=== PATIENT | female | born 1990 | race Caucasian/White ===

== ENCOUNTER 2017-06-23 16:05 | Outpatient (CLI) | payer BC, OTHER ==
--- NOTE | 2017-06-23 19:56 | ULT ---
OB ULTRASOUND: History: Second trimester complete OB ultrasound. Date: 06-23-17 Technique: Multiple longitudinal and transverse images of an intrauterine was obtained usi ng a multihertz curvilinear transducer. FINDINGS: Real-time, color flow, and M-mode sonography demonstrates a viable intrauterine with a fet us in transverse presentation. The placenta is toward the maternal right. Biometrics: BPD 36 mm 17 weeks 1 day HC 142 mm 17 weeks 3 days AC 118 mm 17 weeks 3 days FL 24 mm 17 weeks 3 days Composite age is 17 weeks 2 days with an estimated date of delivery of 11-29-17. Estimated feta l weight is 195 grams, +/- 29 grams. Cervical length measures 33.3 cm. anatomic survey demonstrates intracranial structures, lips, nose, posterior fossa, stomach, dorie th kidneys, four chamber heart, three vessel cord, as well as the spine to be unremarkable. IMPRESSION: Viable IUP with estimated gestational age of 17 weeks 2 days with an estimated date of delivery of . POS: [facility]
== END 2017-06-23 16:06 | disposition home or self-care (01) ==
LOC: ULT 16:05
PROVIDERS: ATTEND Family Medicine
DX: Z34.92 Encounter for supervision of normal pregnancy, unspecified, second trimester (principal); Z3A.17 17 weeks gestation of pregnancy
CPT/HCPCS: 76805

== ENCOUNTER 2017-06-25 20:39 | Inpatient (IN) | payer BC, OTHER ==
[2017-06-25] MEDS ORDERED: Morphine 2 MG/ML SYRINGE ONE (20:47)
[2017-06-25] MEDS ORDERED: Ondansetron HCl/PF 4 MG/2 ML Vial ONE (22:22)
[2017-06-25] MEDS ORDERED: Ondansetron ODT 4 MG TAB SL PRN (23:23)
[2017-06-25] MEDS ORDERED: Ondansetron HCl/PF 4 MG/2 ML Vial IVP PRN (23:23)
[2017-06-25] MEDS ORDERED: Lactated Ringer's 1,000 ML IV SCH (23:30)
[2017-06-25 23:42] VITALS: BMI 28.4
[2017-06-26] MEDS: Morphine 2 MG/ML SYRINGE SLOW IVP PRN ×2 (01:03→06:22)
[2017-06-26] MEDS ORDERED: diphenhydrAMINE 25 MG CAP PO SCH (03:30)
[2017-06-26] MEDS ORDERED: diphenhydrAMINE 25 MG CAP PO PRN (07:59)
[2017-06-26] MEDS: Sodium Chloride 0.9% 1,000 ML IV SCH ×2 (08:13→16:57)
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
[2017-06-26] MEDS: Prenatal Vitamin 1 TAB PO SCH (08:54)
[2017-06-26] MEDS ORDERED: cefTRIAXone\\ROCEPHIN 1 GM, Admixture Fee 1 EACH in Sodium Chloride 0.9% 100 ML IVPB SCH ×2 (09:00→19:30)
[2017-06-26] MEDS: HYDROcodone/Acetaminophen 5/325 mg Tablet PO PRN ×3 (13:28→21:08)
[2017-06-26] MEDS ORDERED: Promethazine HCl 25 MG/ML VIAL IM SCH (14:00)
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
[2017-06-27] MEDS: Sodium Chloride 0.9% 1,000 ML IV SCH ×3 (02:01→12:15)
[2017-06-27] MEDS ORDERED: Levothyroxine Sodium 125 MCG TAB PO SCH (06:00)
[2017-06-27] MEDS: HYDROcodone/Acetaminophen 5/325 mg Tablet PO PRN ×2 (06:27→12:01)
[2017-06-27] MEDS: Prenatal Vitamin 1 TAB PO SCH (12:01)
[2017-06-27 12:14] VITALS: BP 110/59; TEMP 98.1
--- NOTE | 2017-06-27 14:01 | DIS ---
DISCHARGE DIAGNOSES: 1. Urolithiasis with partial left ureteral obstruction and intractable pain. 2. Eighteen week estimated gestational age . HOSPITAL COURSE: The patient is a 26-year-old white female patient at 18 weeks, EGA -0-0-3 wit h a history of kidney stones who is well known to me who was admitted after transfer from the [facility] Room with intractable pain and urolithiasis. Ultrasound at the [place] [facility] revealed moderate right hydronephrosis and renal lithiasis, but no complete obstruction. She h ad been afebrile in the emergency room, she had been in pain at home for 3 days. Her white count wa s 7, hemoglobin 12. CMP was normal. Urinalysis with 31-50 RBCs, 3-5 WBCs. She was subsequently ad mitted to the hospital inpatient service at [facility]. A consult was obtained with Dr. Kari Lo, urologist. The patient was seen and given options for surgical versus medical manageme nt. The patient is opting for medical management. She remained afebrile throughout her stay. Note d a urine culture was never obtained in either emergency room. She had been given IV morphine and R ocephin as well as p.o. hydrocodone as needed. Her pain was under control. She was discharged home in good condition with mild to moderate pain. DISCHARGE MEDICATIONS: Loma 5/32 q.6h. p.r.n. pain, #30 sent to the pharmacy as well as Flomax 0.4 p.o. daily at the recommendation of Dr. Bone. The patient is to see me in the office on for a regular scheduled appointment. Instructions given if she continues with intractable pain, needing pain medication around the clock over the next 3-4 days, she should call Dr. Bone's offi ce for an appointment for possible surgical intervention.
== END 2017-06-27 12:36 | disposition home or self-care (01) | DRG 781 ==
LOC: ERS 20:39 → 3SE 23:10
PROVIDERS: ADMIT Family Medicine; ATTEND Family Medicine
DX: O99.89 Other specified diseases and conditions complicating pregnancy, childbirth and the puerperium (principal); G40.909 Epilepsy, unspecified, not intractable, without status epilepticus; N13.2 Hydronephrosis with renal and ureteral calculous obstruction; O99.282 Endocrine, nutritional and metabolic diseases complicating pregnancy, second trimester; E03.9 Hypothyroidism, unspecified; Z3A.18 18 weeks gestation of pregnancy; G43.909 Migraine, unspecified, not intractable, without status migrainosus; F90.9 Attention-deficit hyperactivity disorder, unspecified type; O99.342 Other mental disorders complicating pregnancy, second trimester; O99.352 Diseases of the nervous system complicating pregnancy, second trimester; Z87.442 Personal history of urinary calculi
CPT/HCPCS: 96374; 96375; A4216; J0696; J2270; J2405; J2550; J7050; Q0162

== ENCOUNTER 2017-07-29 09:34 | Outpatient (CLI) | payer BC, OTHER ==
--- NOTE | 2017-07-29 14:22 | ULT ---
BILATERAL RENAL ULTRASOUND: Date: 07/29/17 HISTORY: Renal stones. Hematuria. COMPARISON: None. TECHNIQUE: Sagittal and transverse imaging of the kidneys performed. FINDINGS: Right Kidney: Moderate hydronephrosis. Nonobstructing calcification in the upper pole cortex. There is a calcificat ion in the renal pelvis measuring approximately 0.9 cm. Right kidney measures 11.3 x 5.5 x 5.5 cm. Left Kidney: No hydronephrosis. Left kidney measures 5.3 x 12.6 x 6.7 cm. No masses. Urinary bladder is unremarkable. IMPRESSION: Moderate right-sided hydronephrosis. Nonobstructing calcifications of the right pelvis are noted. POS: [facility]
== END 2017-07-29 09:35 | disposition home or self-care (01) ==
LOC: ULT 09:34
PROVIDERS: ATTEND Urology
DX: N20.0 Calculus of kidney (principal); N13.30 Unspecified hydronephrosis
CPT/HCPCS: 76770

== ENCOUNTER 2017-08-04 18:45 | Inpatient (IN) | payer BC, OTHER ==
[2017-08-04] MEDS ORDERED: Morphine 4 MG/ML Carpuject ONE ×2 (19:22→20:00)
[2017-08-04 19:25] LABS: Bilirubin Negative (Negative); Blood, Urine Negative (Negative); Glucose, Urine (Dipstick) Negative (Negative); Ketone, Urine Negative (Negative); Nitrite Negative (Negative); Protein, Urine (Dipstick) Negative (Neg-Trace); Urobilinogen 0.2 mg/dL (0.2-1.0)
[2017-08-04 19:31] LABS: #Basophils 0.1 thou/uL (0.0-0.2); #Eosinphils 0.1 thou/uL (0.0-0.7); #Lymphocytes 2.2 thou/uL (1.20-3.40); #Monocytes 0.8 thou/uL (0.11-0.59); #Neutrophils 6.6 thou/uL (1.40-6.50); %Basophils 0.5 % (0.0-1.0); %Eosinophils 0.9 % (0.0-10.0); %Lymphocytes 22.8 % (21.0-51.0); %Monocytes 7.9 % (0.0-10.0); Hematocrit 33.4 % (36.0-47.0); Mean Platelet Volume 7.7 fL (7.4-10.4); Red Blood Cell (RBC) Count 3.83 mill/uL (4.20-5.40); White Blood Cell (WBC) Count 9.7 thou/uL (4.8-10.8)
[2017-08-04 19:38] LABS: ALT (SGPT) 12 U/L (8-55); AST (SGOT) 14 U/L (5-34); Alkaline Phosphatase 57 U/L (40-150); Anion Gap 13 mmol/L (10-20); BUN (Urea Nitrogen) 10 mg/dL (7.0-18.7); Bilirubin, Total 0.2 mg/dL (0.2-1.2); Calc. Creatinine Clearance 0 mL/min (70-130); Carbon Dioxide 21 mmol/L (22-29); Chloride 108 mmol/L (98-107); Estimated GFR-MDRD Greater than 90; Globulin 3.1 g/dL (2.4-3.5); Protein, Total 6.5 g/dL (6.0-8.3)
[2017-08-04] MEDS ORDERED: HYDROcodone/Acetaminophen 10/325 mg Tablet ONE (20:58)
[2017-08-04] MEDS ORDERED: HYDROcodone/Acetaminophen 5/325 mg Tablet PO PRN ×2 (22:01)
[2017-08-04] MEDS ORDERED: Metoclopramide HCl 10 MG/2 ML VIAL IVP PRN (22:06)
[2017-08-04] MEDS: MORPHINE 10 MG/ML SYRINGE IV PRN (22:12)
[2017-08-04] MEDS: Dextrose 5 %-0.45 % NaCl 1,000 ML IV SCH (23:14)
[2017-08-04] MEDS: Promethazine HCl 25 MG/ML VIAL IM PRN (23:16)
[2017-08-05 01:53] VITALS: BMI 27.6
[2017-08-05] MEDS: MORPHINE 10 MG/ML SYRINGE IV PRN ×2 (01:53→06:14)
[2017-08-05] MEDS: Promethazine HCl 25 MG/ML VIAL IM PRN ×2 (05:12→21:15)
[2017-08-05] MEDS: Dextrose 5 %-0.45 % NaCl 1,000 ML IV SCH (06:55)
[2017-08-05 08:38] LABS: PTT 29.9 SEC (22.9-36.1); Prothrombin Time 13.4 SEC (12.0-14.7)
[2017-08-05] MEDS ORDERED: MORPHINE 10 MG/ML SYRINGE IV PRN (09:34)
[2017-08-05] MEDS ORDERED: Morphine PF 1 MG/ML SYR IV PRN (09:35)
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
[2017-08-05] MEDS ORDERED: Ondansetron HCl/PF 4 MG/2 ML Vial IVP PRN (10:06)
[2017-08-05] MEDS ORDERED: Fentanyl 100 MCG/2 ML VIAL ONE (11:20)
[2017-08-05] MEDS ORDERED: Midazolam HCl 2 mg/2 ml Vial ONE (11:21)
[2017-08-05 11:37] LABS: Bilirubin Negative (Negative); Blood, Urine Negative (Negative); Glucose, Urine (Dipstick) Negative (Negative); Ketone, Urine Negative (Negative); Nitrite Negative (Negative); Protein, Urine (Dipstick) Negative (Neg-Trace); Urobilinogen 0.2 mg/dL (0.2-1.0)
[2017-08-05 11:38] LABS: Bacteria/HPF None Seen HPF (None Seen); Hyaline Casts/LPF 0-3 HYALINE CAST LPF (0-3 Hyaline); RBC/HPF 0-3 HPF (0-3); Squamous Epithelial None Seen HPF (0-3); WBC/HPF None Seen HPF (0-3)
[2017-08-05] MEDS: HYDROcodone/Acetaminophen 7.5/325 mg Tablet PO PRN ×3 (12:36→21:16)
[2017-08-05] MEDS: Levothyroxine Sodium 125 MCG TAB PO SCH (12:37)
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
--- NOTE | 2017-08-05 13:21 | ULT ---
RIGHT RENAL ULTRASOUND: History: Nephrostomy tube placement. Technique: Multiple longitudinal and transverse images of the right kidney obtained using a multihert z curvilinear transducer. FINDINGS: Real-time images demonstrate placement of a right sided nephrostomy tube in the right dilated collect ing system. IMPRESSION: Successful percutaneous right nephrostomy tube placement. POS: [facility]
--- NOTE | 2017-08-05 16:11 | CT ---
CT GUIDED RIGHT SIDED NEPHROSTOMY TUBE PLACEMENT: History: Hydronephrosis. Technique: Noncontrast enhanced CT was performed through the upper abdomen. FINDINGS: Hydronephrotic right kidney. A right ureteropelvic junction calculus is seen. Diameter measures appro ximately 8.5 mm. The hydronephrotic right kidney was localized. The overlying skin was prepped and draped in the usual sterile manner. A 1% Lidocaine solution was used to anesthetize overlying soft tissues. A small derm atomy was made. A 5 English Yueh needle was placed using CT guidance into the right hydronephrotic kid carie. An 035 Amplax wire was introduced. The tract was dilated using a 8 English dilator. An all-purpos e drainage catheter was placed over the wire into the right collecting system. Position was confirmed using follow up ultrasound to reduce radiation dose to the fetus. IMPRESSION: Successful CT guided right sided nephrostomy tube placement. POS: [facility]
[2017-08-05] MEDS: Lactated Ringer's 1,000 ML IV SCH ×2 (17:03→18:18)
[2017-08-05] MEDS ORDERED: Preparation H Ointment 28 GM TUBE TOP PRN (19:08)
[2017-08-06] MEDS: HYDROcodone/Acetaminophen 7.5/325 mg Tablet PO PRN ×6 (00:32→20:43)
[2017-08-06] MEDS: Levothyroxine Sodium 125 MCG TAB PO SCH ×2 (07:10→07:11)
--- NOTE | 2017-08-06 09:21 | PRG ---
DATE OF SERVICE: 08/06/2017 SUBJECTIVE: The patient states that she has not really improved overnight, although she felt a littl e better after the nephrostomy tube placement. She is now complaining of 10/10 pain again. Her pain is primarily located at the right flank at the site of the nephrostomy tube as well as in the left l ower quadrant, which is relatively new. She is not complaining of any right lower quadrant pain. Nelli cole is using [place] 7.5/325 as well as Stadol continuously. She denies any fevers or chills, nausea or vomiting and is just complaining of fairly significant pain. PHYSICAL EXAMINATION: VITAL SIGNS: Temperature 97.9, pulse 72, respirations 18, blood pressure 97/54, saturation 98% on ro om air. GENERAL: No apparent distress, actually appears relatively comfortable, although she does grimace oc casionally from pain episodes. She is communicative and alert otherwise. CARDIOVASCULAR: Regular rate and rhythm. LUNGS: Chest clear to auscultation. No increased work of breathing. ABDOMEN: Gravid uterus, mild to moderate tenderness to palpation in the left lower quadrant, althoug h there is no rebound or guarding. No peritoneal signs. No rigid abdomen. Right lower quadrant is nontender. She does have fairly significant right CVA tenderness. The nephrostomy tube is in place with clear yellow urine in the bag. GENITOURINARY: Deferred. EXTREMITIES: 1+ edema. No clubbing or cyanosis. LABORATORY EVALUATION: There are no new labs for today. Urine culture currently has no growth at 24 hours. ASSESSMENT AND PLAN: A 26-year-old white female G4, P3, currently a 23 weeks gestation with persiste nt right flank pain and left lower quadrant pain despite placement of nephrostomy tube for hydronephr osis and an 8.5 mm right ureteropelvic junction stone. This is concerning that she has persistent pa in. Generally, decompression of the renal system should alleviate the pain. I would like to repeat an ultrasound to ensure that she has no left-sided hydronephrosis that is worsening or persistent rig ht-sided hydronephrosis as well as a pelvic ultrasound to ensure that her ovaries, uterus and bladder appear normal without any significant pathology. Assuming these were all normal, we can discuss the possibility of ureteroscopic stone extraction on the right side, although I am hesitant about doing this procedure as removal of the stone probably or possibly may not relieve her pain given that the n ephrostomy tube really did not relieve her pain. The primary reason for considering ureteroscopic st one extraction would be allowing for the nephrostomy tube to be removed, which may alleviate the rosalinda ent's pain as it is possible she is having severe pain just from the nephrostomy tube alone. We will continue to follow and monitor and make decisions with her patient navigator, Dr. Brooks, and the patient and her .
--- NOTE | 2017-08-06 10:08 | ULT ---
OB ULTRASOUND: HISTORY: Left lower quadrant pain. FINDINGS: A single live intrauterine gestation was seen with measurements corresponding to an estimated gestati onal age of 23 weeks 2 days and SUZY at 12/01/17. The estimated weight measures 601 gm or 1 pound 5 ounces. measurements are as follows: BPD 5.26 cm, 22 weeks 0 days HC 22.23 cm, 24 weeks 2 days AC 18.98 cm, 23 weeks 5 days FL 4.08 cm, 23 weeks 2 days heart rate measures 121 b.p.m. The PUMA measures 13.1 cm. Cervical length measures 4 cm. A 3-vessel cord, cord insertion, kidneys, bladder, stomach, 4-chamber heart, lateral ventricles , cerebellum, spine, lips/nose, upper and lower extremities are visualized. No definite anomal ies are seen. No sonographic abnormality is seen in the left lower quadrant. IMPRESSION: Single intrauterine of 23 weeks 2 days estimated gestational age and estimated date of deli very at 12/01/17. POS: [facility]
--- NOTE | 2017-08-06 10:11 | ULT ---
BILATERAL RENAL ULTRASOUND COMPLETE: History: 26-year-old female with history of prior nephrostomy. FINDINGS: Right kidney measures 12.0 x 5.5 x 6.2 cm. Left kidney measures 12.0 x 5.7 x 5.9 cm. The bladder is e mpty. There is no renal hydronephrosis or overt perinephric process. Right renal outline is somewhat obscured. IMPRESSION: No renal hydronephrosis or perinephric process. The percutaneous nephrostomy tube that was placed on 08-05-17 was not definitely visualized on this examination. POS: [facility]
[2017-08-06] MEDS ORDERED: cefTRIAXone\\ROCEPHIN 1 GM, Syringe 0.4 ML in Sterile Water 9.6 ML SLOW IVP SCH (18:15)
--- NOTE | 2017-08-06 18:54 | PRG ---
DATE OF SERVICE: 08/06/2017 The patient's ultrasound results have returned and demonstrates no hydronephrosis bilaterally. The n ephrostomy tube could not be visualized on ultrasound, but she has had continued good urine output of nonbloody urine from the right nephrostomy tube. She continues to have fairly severe pain right on the right flank and right on the nephrostomy tube site. Her left lower quadrant pain has subsided so me, but it is still present. I have discussed with the patient that given the ultrasound findings sh owing no obvious problems with adequate decompression of the kidney with persistent pain around the s rafia of the nephrostomy tube, it is likely the nephrostomy tube itself is causing significant pain rat her than subject her to a ureteral stent placement, which would have to be changed out periodically w ith subsequent general anesthetics for the remainder of her . In order to get her nephrosto my tube out, I discussed possible ureteroscopy with attempt to remove any stones on the right, which would allow for removal of the right nephrostomy tube and a ureteral stent, which would have to be pl aced immediately after the surgery. I went over the risks of the surgery of ureteroscopy including r isk for bleeding, urinary tract infection, ureteral stricture, ureteral perforation, renal injury, da mage to the bladder, urethra or ureter and potential risks to the fetus of general anesthesia, induct ion of labor or contractions of labor and radiation exposure to the fetus during the second trimester. I told her that I would try to limit fluoroscopy to only what was absolutely neces kaelyn during the procedure to ensure a safe procedure to minimize radiation exposure to the fetus, wra pping the fetus with a lead apparently newer studies has been shown to increase the radiation exposur e to the baby as the fluoroscopy machine increases power due to the lead being present and radiation scattered to the fetus would increase as opposed to just doing a simple low dose one shot fluoroscopy view. She understands that these risks are present and understands that in this situation that she is in while surgery is not ideal during . The best time to do surgical intervention will be the second trimester as it has the lowest risk of labor or injury. Given this informa tion, her current pain level, lack of other options and attempt to be more conservative, we have chelly romo decided this would probably be the best course of action. There are risks, but they are low and they are acceptable enough to proceed forward. We have discussed this extensively with her and her segundo lamas and they both feel that this is the best course of action as she states she cannot continue th e rest of her in this manner as she is not able to adequately control the pain on p.o. pain medication and has a significant amount of time left before her baby would be at term. Given all of all this information, she has agreed to go forward with a right-sided ureteroscopy with laser lithot ripsy, basket extraction of stone, placement of a 6 x 24 double-J stent and subsequently after 24 theo rs, removal of the right nephrostomy tube. This time will need to be in place for at least 6-7 days to allow for decrease in ureteral edema at which time we would then plan for ureteral stent removal. After that, she should be stone free on the right and able to continue the rest of her une ventfully with no usage of pain medication or other narcotics and no further kidney stones on the rig ht side. Stone prevention can then be done subsequently after she delivers her baby.
[2017-08-06] MEDS: Promethazine HCl 25 MG/ML VIAL IM PRN (23:39)
[2017-08-07] MEDS ORDERED: Sodium Chloride 0.9% 0 ML ONE (02:18)
[2017-08-07] MEDS: Levothyroxine Sodium 125 MCG TAB PO SCH (06:11)
[2017-08-07] MEDS: MORPHINE 10 MG/ML SYRINGE IV PRN ×3 (06:23→15:47)
[2017-08-07] MEDS ORDERED: Sodium Chloride 0.9% 10 ML ONE ×2 (06:31→19:51)
[2017-08-07] MEDS ORDERED: Fentanyl 100 MCG/2 ML VIAL ONE (12:29)
[2017-08-07] MEDS ORDERED: Morphine PF 1 MG/ML SYR ONE (15:39)
[2017-08-07] MEDS ORDERED: Propofol 200 MG/20 ML VIAL ONE (17:20)
[2017-08-07] MEDS ORDERED: PHENYLEPHRINE-NS 100 MCG/ML 10 ML SYRINGE ONE (17:20)
[2017-08-07] MEDS ORDERED: Succinylcholine Chloride 20 MG/ML 10 ml SYRINGE FS ONE (17:20)
[2017-08-07] MEDS ORDERED: Lidocaine 1% PF 5 ML VIAL ONE (17:20)
[2017-08-07] MEDS ORDERED: ePHEDrine/0.9% NaCl/PF SYRINGE 50 mg/10 ml ONE (17:20)
[2017-08-07] MEDS: HYDROcodone/Acetaminophen 7.5/325 mg Tablet PO PRN ×2 (17:37→22:48)
--- NOTE | 2017-08-07 19:40 | OP ---
DATE OF PROCEDURE: 08/07/2017 SERVICE: Urology. SURGEON: Willy Bone M.D. PREOPERATIVE DIAGNOSIS: Right ureteropelvic junction stone. POSTOPERATIVE DIAGNOSIS: Right distal ureteral stone and right ureteropelvic stone. PROCEDURES PERFORMED: Cystoscopy with right ureteroscopy, laser lithotripsy, basket extraction of st one, and placement of a 6 x 26 double-J stent. INDICATIONS FOR PROCEDURE: Sharla is a 26-year-old white female, who is currently 23 weeks , w ho presented with severe right flank pain. She initially attempted medical expulsive therapy for pre sumed stone given her history of nephrolithiasis, but due to intractable pain, [facility] after being to the ER once prior for nephrostomy tube placement. The nephrostomy tube was pl aced. Unfortunately, she is having significant pain from the nephrostomy tube and persistent flank p ain; therefore, we have elected to go forward with ureteroscopy, so that we may remove ultimately all the hardware and instruments from her to allow her to carry up the rest of her without req uiring pain medication. Risks and benefits have extensively been discussed with the patient given he r and she has agreed to proceed forward. DESCRIPTION OF PROCEDURE: After identification of armband and verification of consent, the patient w as brought back to the operating room where she underwent general anesthesia with an LMA. She was th en placed in the dorsal lithotomy position, and prepped and draped in usual sterile fashion. After a ppropriate timeout, lubricated 22-Somali rigid cystoscope was introduced per urethra into the bladder . Attention was turned towards the right ureteral orifice which was in its orthotopic location. Att empts to cannulate the ureter with a 0.035 sensor wire was met with resistance indicating that there was a likely stone in the distal ureter. The cystoscope and wire removed and semi-rigid ureteroscope brought in and intubated into the right ureteral orifice. The stone was seen approximately 2-3 cm p roximal to the ureteral orifice. Using the ureteroscope, we guided a sensor wire past the stone pres umably to the level of the kidney. Fluoroscopy was minimized to the absolute minimum to avoid excess jose radiation exposure to the fetus. The ureteroscope was then withdrawn to secure the wire and then reinserted adjacent to the wire back into the distal ureter. A 200 micron fiber laser was then used to fragment the distal stone into small pieces and a 1.9 Somali 0-tip nitinol basket used to extract the specimen. Once the stone had completely been removed from the distal ureter, the ureteroscope w as then advanced to the mid ureter where the Super Stiff wire was passed through the ureteroscope to the presumed renal pelvis. A 1 shot fluoroscopy was done over the renal pelvis away from the patient 's actual pelvis where the fetus was, which confirmed that both wires were in the renal pelvis adjace nt to the nephrostomy tube which had been previously placed. Ureteroscope was then withdrawn leaving the Super Stiff wire and the sensor wire in place as a safety wire. A 11/13 x 36 cm ureteral access sheath was then advanced over the Super Stiff wire to the level of the proximal ureter. The inner c annula and the Super Stiff wire were then removed leaving the outer sheath and the sensor wire in hyun ce as a safety wire. A flexible digital ureteroscope was then passed through the ureteral access she ath into the proximal ureter and then into the renal pelvis. There was no stone seen at the [facility], whi ch had previously been identified on the percutaneous nephrostomy tube placement. A full pyeloscopy was performed and there was a tiny fragment of a stone within 1 of the calices, which was basket extr acted. The 8.5 mm stone which had been seen on the CT was found floating around in the renal pelvis adjacent to the nephrostomy tube. The 200 micron laser fiber was then used to fragment this into sma ll pieces. Then, a 1.9 Somali 0-tip nitinol basket was used to extract the specimen. A final pyelos copy did not demonstrate any significant stone pieces over 1 mm, the vast majority of the fragments w ere removed and some of the fragments were able to be flushed through the nephrostomy tube which was left open to gravity drainage. Pull back ureteroscopy was then employed and there were no additional stones or abnormalities noted within the ureter. The cystoscope was then backloaded over the sensor wire back into the bladder and a 6 x 26 double-J stent with no string attached was advanced over the sensor wire to the level of the renal pelvis. One shot fluoroscopy was used to confirm that the pro ximal coil was indeed within the renal pelvis and then the wire removed. The bladder was then emptie d and the cystoscope removed. The patient was then awakened and taken to PACU for recovery in stable condition. Of note, heart monitoring was performed before and after the procedure. COMPLICATIONS: None. ESTIMATED BLOOD LOSS: Minimal. RETAINED TUBES AND DRAINS: A 6 x 26 double-J stent on the right and then nephrostomy tube on the rig ht. SPECIMENS: Stone for stone analysis. TOTAL FLUOROSCOPY TIME: One second. DISPOSITION: The patient will go back to the OB service for Dr. Brooks, and we will monitor her for 24 hours. Tomorrow, we will plan removal of her nephrostomy tube and she will probably keep her sten t in for 1 week at which time we will remove her stent and then she should be stone free at that poin t.
[2017-08-07] MEDS: Promethazine HCl 25 MG/ML VIAL IM PRN (23:20)
[2017-08-08] MEDS: HYDROcodone/Acetaminophen 7.5/325 mg Tablet PO PRN ×2 (05:23→13:24)
[2017-08-08] MEDS: Levothyroxine Sodium 125 MCG TAB PO SCH (05:23)
[2017-08-08 05:53] LABS: Hematocrit 30.6 % (36.0-47.0); Mean Platelet Volume 7.8 fL (7.4-10.4); White Blood Cell (WBC) Count 6.3 thou/uL (4.8-10.8)
[2017-08-08 06:16] LABS: Anion Gap 10 mmol/L (10-20); BUN (Urea Nitrogen) 6 mg/dL (7.0-18.7); Calc. Creatinine Clearance 172 mL/min (70-130); Calcium 8.9 mg/dL (7.8-10.44); Carbon Dioxide 26 mmol/L (22-29); Chloride 108 mmol/L (98-107); Estimated GFR-MDRD Greater than 90
--- NOTE | 2017-08-08 08:04 | RAD ---
RETROGRADE IVP: HISTORY: A 26-year-old female with a history of right stent placement. FINDINGS: Single portable fluoroscopic spot image demonstrates percutaneous nephrostomy catheter in place as we ll as the ureteral stent in place on this single portable fluoroscopic spot image. IMPRESSION: Percutaneous nephrostomy catheter and ureteral stent. POS: [facility]
--- NOTE | 2017-08-08 08:43 | PRG ---
DATE OF SERVICE: 08/08/2017 SUBJECTIVE: The patient is complaining of moderate pain of her right flank after the nephrostomy tub e placement. She states the pain is worse since the nephrostomy tube has been placed. OBJECTIVE: VITAL SIGNS: Temperature 97.9, pulse 101, respirations 20, blood pressure 110/56. HEART: Regular rate and rhythm. LUNGS: Clear. ABDOMEN: Soft. heart tones 138. GENERAL: The patient does not appear to be in any distress at this time. LABORATORY: White count 6.3, H&H 10 and 30. Electrolytes normal. Creatinine 0.6, BUN 6, blood suga r 97. ASSESSMENT: 1. Right ureteral nephrolithiasis status post lithotripsy and nephrostomy tube placement. The patie nt complains of increased pain; however, clinically she does not appear to be in significant pain, al though she is lying in bed. She strongly desires to have a nephrostomy tube removed. 2. Twenty-three week intrauterine . PLAN: 1. Pain control. 2. Dr. Bone to evaluate right nephrostomy tube. 3. Continue hydration. 4. We will continue to follow.
[2017-08-08 12:50] VITALS: BP 99/59; TEMP 99.2
[2017-08-08] MEDS ORDERED: cefTRIAXone\\ROCEPHIN 1 GM, Syringe 0.4 ML in Sterile Water 9.6 ML SLOW IVP SCH (13:00)
[2017-08-08] MEDS ORDERED: cefTRIAXone\\ROCEPHIN 1 GM in Sodium Chloride 0.9% 100 ML IVPB SCH (14:16)
--- NOTE | 2017-08-08 15:03 | PRG ---
DATE OF SERVICE: 08/08/2017 SUBJECTIVE: The patient states she is still having quite a bit of pain from her nephrostomy tube. I told her that she could have her nephrostomy tube removed today if she has decided, then she states that her nephrostomy tube is causing worst pain than stent. Therefore, she would like her nephrostom y tube removed. The tube was removed today and she states that she started feeling better afterwards . OBJECTIVE: VITAL SIGNS: Temperature 99.2, pulse 89, respirations 16, blood pressure 99/59, and saturations 100% on room air. GENERAL: No apparent distress, appears slightly uncomfortable, but is otherwise communicative and al ert. CARDIOVASCULAR: Regular rate and rhythm. CHEST: Clear to anteriorly. ABDOMEN: Soft, nontender, nondistended, gravid uterus, mild tenderness to palpation in the right low er quadrant. GENITOURINARY: Deferred. EXTREMITIES: No clubbing or cyanosis, 1+ edema. ASSESSMENT AND PLAN: A 26-year-old white female status post ureteroscopy for right-sided stones with stent placement and removal of her nephrostomy tube today. She is feeling better now and I think fr om my standpoint, she can go home. She already has pain medication if she needs it and we have elect ed against the use of oxybutynin, which is category C in . Should she have any further prob lems or issues, she can contact me. Otherwise, I will see her next week for cystoscopy and stent rem oval on Friday at 08:30. I will sign off on the case today and please reconsult if there are any other issues. She can be discharged when she is deemed fit by her primary team.
== END 2017-08-08 15:15 | disposition home or self-care (01) | DRG 781 ==
LOC: SCSER 18:45 → OBSVTOIN 22:00 → 3SW 22:00
PROVIDERS: ADMIT Family Medicine; ATTEND Family Medicine
PROC: 0TC68ZZ Extirpation of Matter from Right Ureter, Via Natural or Artificial Opening Endoscopic (ICD-10-PCS; principal; 2017-08-07)
PROC: 0T768DZ Dilation of Right Ureter with Intraluminal Device, Via Natural or Artificial Opening Endoscopic (ICD-10-PCS; 2017-08-07)
PROC: 0T9330Z Drainage of Right Kidney Pelvis with Drainage Device, Percutaneous Approach (ICD-10-PCS; 2017-08-07)
DX: O99.89 Other specified diseases and conditions complicating pregnancy, childbirth and the puerperium (principal); N20.2 Calculus of kidney with calculus of ureter; O99.282 Endocrine, nutritional and metabolic diseases complicating pregnancy, second trimester; E03.9 Hypothyroidism, unspecified; Z3A.23 23 weeks gestation of pregnancy; F90.9 Attention-deficit hyperactivity disorder, unspecified type; O99.342 Other mental disorders complicating pregnancy, second trimester; G43.909 Migraine, unspecified, not intractable, without status migrainosus; O99.352 Diseases of the nervous system complicating pregnancy, second trimester; Z87.442 Personal history of urinary calculi
CPT/HCPCS: 36415; 74150; 74420; 76770; 76775; 76856; 77002; 80048; 80053; 81001; 81003; 82365; 85025; 85027; 85610; 85730; 87086; 88300; 96361; 96374; 96376; A4216; C1729; C1758; C1769; J0595; J0696; J2001; J2250; J2270; J2274; J2550; J2704; J3010

== ENCOUNTER 2017-11-14 22:45 | Day surgery (SDC) | payer BC, OTHER ==
[2017-11-14 23:18] VITALS: BMI 30.8
--- NOTE | 2017-11-15 00:44 | SS ---
OB TRIAGE NOTE DATE OF EVALUATION: 11/14/2017 ATTENDING PHYSICIAN: Donya Brooks M.D. EVALUATING PHYSICIAN: Phoenix Anaya M.D. CHIEF COMPLAINT: Contractions. HISTORY OF PRESENT ILLNESS: Ms. Guillory is a 27-year-old white G4, P3-0-0-3 with an estimated date o f confinement of 11/29/2017, who presents tonight complaining of contractions at home. She denies ru ptured membranes or vaginal bleeding. She has been seen by Dr. Brooks and states that she had her me mbranes stripped last week in the office. She denies decreased movement. PAST OBSTETRICAL HISTORY: Remarkable for 3 vaginal deliveries at term. PAST MEDICAL HISTORY: Includes anxiety and hypothyroidism. Apparently, she has had a seizure disord er in the past. CURRENT MEDICATIONS: Zoloft and Synthroid. PAST SURGICAL HISTORY: Unremarkable. SOCIAL HISTORY: She denies drug use. ALLERGIES: No known allergies. REVIEW OF SYSTEMS: Denies nausea, vomiting, fever, or chills. PHYSICAL EXAMINATION: VITAL SIGNS: Stable. She is afebrile. ABDOMEN: Soft, nontender, and gravid. EXTREMITIES: By labor nurse shows the cervix to be 2-cm dilated, 50% effaced with the vertex present ing. This is apparently unchanged from her last exam in the office. heart tones are stable wi th good [id number] variability. Mild contractions every 2-4 were seen. ASSESSMENT: 1. Term intrauterine . 2. Cervical exam unchanged, prodromal labor. PLAN: At this time, I gave the patient the option of staying a little longer and rechecking her cerv ix versus going home and resting. At this time, she has family locally and she would like to go home and rest there. She was given complete labor precautions and sent home in good condition. The rosalinda ent was very agreeable to this.
== END 2017-11-14 23:59 ==
LOC: L&D/OP 22:45 → SDC/OP 23:59
PROVIDERS: ATTEND Family Medicine
DX: O47.9 False labor, unspecified (principal); O99.340 Other mental disorders complicating pregnancy, unspecified trimester; F41.9 Anxiety disorder, unspecified; O99.280 Endocrine, nutritional and metabolic diseases complicating pregnancy, unspecified trimester; E03.9 Hypothyroidism, unspecified; O99.350 Diseases of the nervous system complicating pregnancy, unspecified trimester; G40.909 Epilepsy, unspecified, not intractable, without status epilepticus; Z79.899 Other long term (current) drug therapy; Z3A.00 Weeks of gestation of pregnancy not specified
CPT/HCPCS: 99282

== ENCOUNTER 2017-11-18 14:23 | Inpatient (IN) | payer BC, OTHER ==
[2017-11-24] MEDS ORDERED: Lidocaine 1% (PF) 30 ML VIAL SC PRN (23:26)
[2017-11-24] MEDS ORDERED: Zolpidem Tartrate 5 MG TAB PO PRN (23:26)
[2017-11-24] MEDS ORDERED: Ibuprofen 800 MG TAB PO PRN (23:26)
[2017-11-24] MEDS ORDERED: Misoprostol 200 MCG TAB PR PRN (23:26)
[2017-11-24] MEDS ORDERED: Acetaminophen/Codeine 30-300mg Tablet PO PRN (23:26)
[2017-11-24] MEDS ORDERED: LR 500 ML/Oxytocin 10 units 500 ML IV SCH ×2 (23:26)
[2017-11-24] MEDS ORDERED: HYDROcodone/Acetaminophen 5/325 mg Tablet PO PRN (23:26)
[2017-11-24] MEDS ORDERED: Promethazine HCl 25 MG/ML VIAL IM PRN (23:26)
[2017-11-24] MEDS ORDERED: Acetaminophen 500 MG TAB PO PRN (23:26)
[2017-11-24] MEDS ORDERED: Ondansetron HCl/PF 4 MG/2 ML Vial IVP PRN (23:26)
[2017-11-24 23:31] VITALS: BMI 30.7
[2017-11-24] MEDS: Lactated Ringer's 1,000 ML IV SCH (23:49)
[2017-11-24 23:59] LABS: Hemoglobin 13.6 g/dL (12.0-16.0); Mean Corpuscular HGB CONC 34.4 g/dL (32.0-36.0); Mean Corpuscular Hemoglobin 29.3 pg (27.0-31.0); Mean Corpuscular Volume 85.1 fl (81.0-99.0); Mean Platelet Volume 8.2 fL (7.4-10.4); Platelet Count 217 thou/uL (130-400); RBC Distribution Width 19.2 % (11.5-14.5); Red Blood Cell (RBC) Count 4.63 mill/uL (4.20-5.40); White Blood Cell (WBC) Count 8.5 thou/uL (4.8-10.8)
[2017-11-25 00:40] LABS: Syphilis Antibody Nonreactive (Nonreactive); Syphilis Antibody Index 0.03 S/CO (<1.00 Non-Reactive)
[2017-11-25 00:41] LABS: HBSAg Index 0.18 S/CO (0-0.99); Hep B Surf Ag Non-Reactive S/CO (NonReactive)
[2017-11-25] MEDS ORDERED: Bupivacaine 0.5% 20 ML, Fentanyl 400 MCG in Sodium Chloride 0.9% 72 ML EPIDURAL SCH (02:00)
[2017-11-25] MEDS: Lactated Ringer's 1,000 ML IV SCH ×2 (02:00→06:33)
[2017-11-25] MEDS ORDERED: Eucerin (Mineral Oil/Petrolatum,White) 30 gm Jar TOP PRN (03:01)
[2017-11-25] MEDS ORDERED: Promethazine HCl 25 MG/ML VIAL IM PRN (03:01)
[2017-11-25] MEDS ORDERED: Lactated Ringer's 500 ML IV PRN (03:01)
[2017-11-25] MEDS ORDERED: Ondansetron HCl/PF 4 MG/2 ML Vial IVP PRN ×2 (03:01→10:33)
[2017-11-25] MEDS ORDERED: ePHEDrine/0.9% NaCl/PF SYRINGE 50 mg/10 ml SLOW IVP PRN (03:01)
[2017-11-25] MEDS ORDERED: Naloxone HCl 0.4 mg/ml Vial IVP PRN ×2 (03:01)
[2017-11-25] MEDS ORDERED: Acetaminophen 325 MG TAB PO PRN (03:01)
[2017-11-25] MEDS ORDERED: Communication Order-Pharmacy FS SCH (03:15)
[2017-11-25] MEDS ORDERED: Fentanyl 4mcg/Marcaine 0.1% Cassette 100 ML EPIDURAL SCH (03:15)
[2017-11-25] MEDS: diphenhydrAMINE 50 MG/ML VIAL IVP PRN ×2 (05:53→08:37)
[2017-11-25] MEDS ORDERED: Calcium Carbonate 500 MG ChewTAB PO SCH (06:15)
[2017-11-25] MEDS: LR / Pitocin 40 units/1000 ml 1,000 ML IV PRN ×2 (07:30→08:37)
[2017-11-25] MEDS ORDERED: Lanolin Ointment 7 GM TUBE TOP PRN (10:33)
[2017-11-25] MEDS ORDERED: Preparation H Ointment 28 GM TUBE PR PRN (10:33)
[2017-11-25] MEDS ORDERED: Bisacodyl 10 MG SUPP PR PRN (10:33)
[2017-11-25] MEDS ORDERED: diphenhydrAMINE 25 MG CAP PO PRN (10:33)
[2017-11-25] MEDS ORDERED: HYDROcodone/Acetaminophen 5/325 mg Tablet PO PRN (10:33)
[2017-11-25] MEDS ORDERED: Benzocaine/Menthol 20-0.5% 60 ML CAN TOP PRN (10:33)
[2017-11-25] MEDS ORDERED: LR / Pitocin 40 units/1000 ml 1,000 ML IV SCH (10:33)
[2017-11-25] MEDS ORDERED: Milk Of Magnesia 30 ML UDCUP PO PRN (10:33)
[2017-11-25] MEDS ORDERED: Docusate Calcium (SURFAK) 240 MG CAP PO SCH (11:00)
[2017-11-25] MEDS ORDERED: Prenatal Vitamin 1 TAB PO SCH (11:00)
[2017-11-25] MEDS ORDERED: Ferrous Sulfate 325 MG TAB PO SCH (11:00)
[2017-11-25] MEDS: Ibuprofen 800 MG TAB PO SCH ×2 (11:28→22:20)
[2017-11-25] MEDS: Prenatal Vitamin 1 TAB PO SCH (11:28)
[2017-11-25] MEDS: Acetaminophen/Codeine 30-300mg Tablet PO PRN ×2 (11:28→19:48)
[2017-11-25] MEDS: Docusate Calcium (SURFAK) 240 MG CAP PO SCH ×2 (11:29→22:21)
[2017-11-25] MEDS ORDERED: Bupivacaine/Epinephrine 0.25% 30 ML VIAL ONE (14:57)
[2017-11-25] MEDS ORDERED: Lidocaine 2% MPF 10 ML AMP (For Epidural Use) ONE (14:57)
[2017-11-25] MEDS: Ferrous Sulfate 325 MG TAB PO SCH (18:12)
[2017-11-26] MEDS: Acetaminophen/Codeine 30-300mg Tablet PO PRN ×4 (01:17→16:43)
[2017-11-26] MEDS: Ibuprofen 800 MG TAB PO SCH ×3 (06:08→21:25)
[2017-11-26] MEDS: Prenatal Vitamin 1 TAB PO SCH (08:31)
[2017-11-26] MEDS: Docusate Calcium (SURFAK) 240 MG CAP PO SCH ×2 (08:31→21:26)
[2017-11-26] MEDS: Ferrous Sulfate 325 MG TAB PO SCH ×2 (08:33→15:26)
[2017-11-26] MEDS: Levothyroxine Sodium 125 MCG TAB PO SCH (08:33)
[2017-11-27] MEDS: Ibuprofen 800 MG TAB PO SCH (05:53)
[2017-11-27] MEDS: Levothyroxine Sodium 125 MCG TAB PO SCH (05:54)
[2017-11-27 08:00] VITALS: BP 138/74; TEMP 97.9
[2017-11-27] MEDS: Prenatal Vitamin 1 TAB PO SCH (08:40)
[2017-11-27] MEDS: Docusate Calcium (SURFAK) 240 MG CAP PO SCH (08:41)
[2017-11-27] MEDS: Ferrous Sulfate 325 MG TAB PO SCH (08:41)
[2017-11-27] MEDS: Acetaminophen/Codeine 30-300mg Tablet PO PRN (10:39)
== END 2017-11-27 13:00 | disposition home or self-care (01) | DRG 775 ==
LOC: UNDOADMIN 14:23 → L&D 14:23 → 3SW 11-25 11:09
PROVIDERS: ADMIT Family Medicine; ATTEND Family Medicine
PROC: 10E0XZZ Delivery of Products of Conception, External Approach (ICD-10-PCS; principal; 2017-11-25)
PROC: 3E033VJ Introduction of Other Hormone into Peripheral Vein, Percutaneous Approach (ICD-10-PCS; 2017-11-25)
DX: O99.284 Endocrine, nutritional and metabolic diseases complicating childbirth (principal); O99.344 Other mental disorders complicating childbirth; E03.9 Hypothyroidism, unspecified; F41.1 Generalized anxiety disorder; Z3A.39 39 weeks gestation of pregnancy; Z37.0 Single live birth
CPT/HCPCS: 36415; 51702; 85027; 86780; 87340; J1200; J2001; J3010; J3490; J7050; J7120

== ENCOUNTER 2017-11-18 14:51 | Day surgery (SDC) | payer BC, OTHER ==
[2017-11-18 15:22] VITALS: BP 122/76; TEMP 98.9; BMI 32.3
--- NOTE | 2017-11-18 18:08 | PDOC.LDHP ---
Labor and Delivery H&P Chief complaint: contractions HPI: 27 y/o [id number] at 38w3d, patient of Dr. Donya Brooks, presents from clinic for BP check and contractions. Denies VB, LOF, or decreased fm. ROS neg for HEENT, cv, pulm, gi, gu, neuro, psych, skin, musculoskeletal or constitutional symptoms other than mentioned above. OB History Details: 3 prior SVDs Current complications: none Current medications: pre-katy vitamins Previous surgical history: none Allergies/Adverse Reactions: Allergies Allergy/AdvReac Type Severity Reaction Status Date / Time No Known Allergies Allergy Verified 06/25/17 23:40 Social history: none - Physical Exam Vital signs reviewed and normal: yes General: NAD, resting Lungs: nonlabored breathing Abdomen: gravid FHT: category 1 (140s, mod variability, + accels, no decels) [place] contractions every: irregular 2-8 mins - Vaginal Exam cm dilated: 4 Effacement: 75% Station: -2 - Assessment 27 y/o at 38w3d with no e/o active labor. status reassuring with reactive NST. - Plan -: D/c home with precautions. Advised to keep all appointments and continue daily activity counts.
== END 2017-11-18 18:10 | disposition home or self-care (01) ==
LOC: L&D/OP 14:51
PROVIDERS: ATTEND Family Medicine
DX: O47.1 False labor at or after 37 completed weeks of gestation (principal); Z3A.38 38 weeks gestation of pregnancy; Z79.899 Other long term (current) drug therapy
CPT/HCPCS: 99283

== ENCOUNTER 2018-05-29 14:40 | Outpatient (CLI) | payer BC ==
--- NOTE | 2018-05-29 16:06 | CT ---
NONCONTRAST CT ABDOMEN AND PELVIS 05/29/18 HISTORY: Gross hematuria. COMPARISON: 08/07/14. FINDINGS: The lung bases are clear. There is a stable punctate nonobstructing calculus again present in the inf erior pole right kidney. The previously noted superior pole left renal calculus is no longer visualiz ed and there has been resolution of the left hydronephrosis and hydroureter on the previously noted d istal left ureteral calculus seen on prior exam is also no longer visualized. No ureteral calculi are seen bilaterally and there is no hydronephrosis present. The urinary bladder has a grossly normal no nenhanced CT appearance. There is a slightly irregular calcification within the posterior aspect mid portion left kidney. Calc ified density was also present in this region on the prior study but more conspicuous on the current study. Low density lesion was seen in this region on postcontrast CT exam on 11/02/13. The liver, spleen, pancreas, bilateral adrenal glands and right kidney demonstrate a grossly normal n onenhanced CT appearance. A T-shaped intrauterine contraceptive device is noted in place. The ovaries demonstrate a grossly normal nonenhanced CT appearance bilaterally. The appendix is visualized and normal in caliber. No other interval change from prior study. IMPRESSION: 1. Punctate nonobstructing right renal calculus. 2. No left renal calculus is seen, and no ureteral calculi are seen bilaterally. No hydronephros is is present. 3. Irregular approximately 1 cm cortically based calcification posterior aspect mid portion left kidney. A more smoothly marginated calcification was seen in this region on prior exam. The exact et iology for this structure is uncertain, and this could be related to partially calcified lesion in th is region, incompletely evaluated on this study. As noted above, there was a small hyperdense lesion seen in this region on prior postcontrast study on 11/02/13. 4. No CT evidence of appendicitis. 5. T-shaped intrauterine contraceptive device in place. POS: JOVANNY
== END 2018-05-29 14:41 | disposition home or self-care (01) ==
LOC: BICCT 14:40
PROVIDERS: ATTEND Urology
DX: R31.0 Gross hematuria (principal)
CPT/HCPCS: 74176